=== PATIENT | female | born 1960 | race Caucasian/White ===

== ENCOUNTER 2017-05-19 15:33 | Emergency (ER) | payer OTHER ==
[~2017-05-19] VITALS: Ht 167.6 cm; Wt 80.0 kg
[2017-05-19 15:49] VITALS: Ht 167.6 cm; Wt 80.0 kg
[2017-05-19] MEDS ORDERED: KETOROLAC 60 MG INJ IM STA (16:42)
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
[2017-05-19] MEDS ORDERED: ONDANSETRON (ODT) 4 MG TAB ODT STA (16:50)
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
[2017-05-19] MEDS ORDERED: BACL10TA PO (18:51)
[2017-05-19] MEDS ORDERED: ONDA4TAB8 PO (18:51)
[2017-05-19] MEDS ORDERED: HYDR-906 PO (18:51)
== END 2017-05-19 19:05 | disposition home or self-care (01) ==
LOC: FTE 15:33
DX: M54.2 Cervicalgia (principal); E11.9 Type 2 diabetes mellitus without complications; E03.9 Hypothyroidism, unspecified
CPT/HCPCS: 72050; 72072; 72100; 96372; J1885; Z7502; Z7610

== ENCOUNTER 2017-06-19 12:52 | Day surgery (SDC) | END 2017-06-19 18:45 | disposition home or self-care (01) ==